=== PATIENT | female | born 1970 ===

== ENCOUNTER 2025-01-24 14:28 | Outpatient (AMB) | payer OTHER, SELFPAY ==
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
[2025-01-24 14:39] VITALS: BMI 29.4
== END 2025-01-24 15:21 | disposition home or self-care (01) ==
LOC: HO.HPHYS 14:28
PROVIDERS: PCP Internal Medicine; Visit Provider Physical Medicine & Rehabilitation
DX: M53.0 Cervicocranial syndrome (principal); M54.2 Cervicalgia; V89.2XXA Person injured in unspecified motor-vehicle accident, traffic, initial encounter
CPT/HCPCS: 99204; G2211